=== PATIENT | female | born 1960 | race Caucasian/White ===

== ENCOUNTER 2017-08-06 17:47 | Emergency (ER) | payer SELFPAY ==
[~2017-08-06] VITALS: Ht 165.1 cm; Wt 61.0 kg
[2017-08-06 19:48] VITALS: BP 159/98
[2017-08-07] MEDS ORDERED: NAPROSYN500 MG PO (17:40)
[2017-08-07] MEDS ORDERED: FLEXERIL PO (17:40)
== END 2017-08-06 19:48 | disposition left against medical advice (07) | DRG 951 ==
LOC: ED 17:47 → LWOBS 19:48
DX: Z91.19 Patient's noncompliance with other medical treatment and regimen (principal)

== ENCOUNTER 2017-08-07 14:45 | Emergency (ER) | payer MEDICARE, MEDICAID ==
[~2017-08-07] VITALS: Ht 165.1 cm; Wt 70.0 kg
[2017-08-07] MEDS ORDERED: FLEXERIL PO (17:40)
[2017-08-07] MEDS ORDERED: NAPROSYN500 MG PO (17:40)
[2017-08-07 17:48] VITALS: BP 123/753
== END 2017-08-07 17:55 | disposition home or self-care (01) ==
LOC: ED 14:45
DX: M79.1 Myalgia (principal); X50.1XXA Overexertion from prolonged static or awkward postures, initial encounter; Y93.89 Activity, other specified; Y92.009 Unspecified place in unspecified non-institutional (private) residence as the place of occurrence of the external cause